=== PATIENT | female | born 1995 | race African-American/Black ===

== ENCOUNTER 2025-05-17 12:52 | Day surgery (SDC) | payer SELFPAY ==
[2025-05-17 13:05] VITALS: BMI 31.5
[2025-05-17 15:10] LABS: ABSOLUTE IMMATURE GRANULOCYTES 0.01 x10^3/uL (0.0-0.031); BASOPHILS # 0.02 x10^3/uL (0.01-0.08); EOSINOPHIL % 0.7 % (0.7-5.8); EOSINOPHILS # 0.04 x10^3/uL (0.04-0.36); MCHC 32.5 g/dl (32.2-35.5); MEAN CELL VOLUME 92.7 fl (79.4-94.8); MEAN PLT VOLUME 10.5 fl (9.4-12.3); MONOCYTE # 0.45 x10^3/uL (0.24-0.86); MONOCYTE % 7.6 % (4.7-12.5); RDW 13.2 % (12.1-16.8)
[2025-05-17 15:18] LABS: INR 1.02 (0.83-1.09); PROTHROMBIN TIME (PATIENT) 11.2 SEC (9.7-13.0)
[2025-05-17 15:21] LABS: ACTIVATED PTT 21.2 SECONDS (25.2-36.5)
[2025-05-17 15:26] LABS: URINE APPEARANCE CLEAR; URINE BILIRUBIN NEGATIVE (NEGATIVE); URINE COLOR YELLOW; URINE GLUCOSE (UA) NEGATIVE (NEGATIVE); URINE KETONE NEGATIVE (NEGATIVE); URINE LEUK ESTERASE NEGATIVE (NEGATIVE); URINE NITRITE NEGATIVE (NEGATIVE); URINE PROTEIN NEGATIVE (NEGATIVE); URINE UROBILINOGEN 1.0 mg/dL (0.2-1.0)
[2025-05-17 15:36] LABS: CO2 22.0 mmol/L (21-32); GLUCOSE,RANDOM 85.0 mg/dL (74-106)
[2025-05-17 15:39] LABS: CREATININE 0.7 mg/dL (0.55-1.3); SGOT/AST 38.0 U/L (15-37); SGPT/ALT 27.0 U/L (13-61)
[2025-05-17 15:41] LABS: TOT PROT 7.2 g/dl (6.4-8.2)
[2025-05-17 15:42] LABS: ALK PHOS 48.0 U/L (45-117)
[2025-05-17 16:40] LABS: HIV INTERPRETATION NEGATIVE (NEGATIVE)
[2025-05-17 16:41] LABS: HCV DIAGNOSTIC IN-HOUSE W/RFLX NON-REACTIVE (NONREACTIVE)
[2025-05-17] MEDS ORDERED: LIDOCAINE HCL/PF 2% SDV 5ML VIAL ONE (17:32)
[2025-05-17] MEDS ORDERED: DEXAMETHASONE SOD PHOSPHATE 4 MG/1 ML VIAL ONE (17:32)
[2025-05-17] MEDS ORDERED: ONDANSETRON 4 MG/2 ML VIAL ONE (17:32)
[2025-05-17] MEDS ORDERED: KETOROLAC TROMETHAMINE 30 MG/1 ML VIAL ONE (17:32)
[2025-05-17] MEDS ORDERED: MIDAZOLAM HCL 2 MG/2 ML SINGLE DOSE VIAL ONE (17:33)
[2025-05-17] MEDS ORDERED: BUPIVACAINE HCL/PF 0.5% (5MG/ML) 10 ML VIAL ONE (17:36)
[2025-05-17] MEDS ORDERED: ACETAMINOPHEN INJECTION 100 ML ONE (17:48)
[2025-05-17] MEDS ORDERED: LIDOCAINE HCL 1%, 10 MG/ML (20ML VIAL) ONE (17:56)
[2025-05-17] MEDS ORDERED: LIDOCAINE HCL/PF 1% SDV 5ML VIAL ONE (17:56)
[2025-05-17] MEDS ORDERED: ROCURONIUM BROMIDE 50 MG/5 ML SYRINGE ONE (17:58)
[2025-05-17] MEDS: LIDOCAINE HCL 1%, 10 MG/ML (20ML VIAL) NR ONE ×2 (18:21)
[2025-05-17] MEDS ORDERED: PROPOFOL 20 ML ONE (18:41)
[2025-05-17] MEDS ORDERED: LACTATED RINGERS SOLUTION 1,000 ML IV SCH (18:45)
[2025-05-17] MEDS ORDERED: SUGAMMADEX SODIUM 200 MG/2 ML VIAL ONE (19:09)
[2025-05-17 19:58] LABS: MCHC 32.0 g/dl (32.2-35.5); MEAN CELL VOLUME 93.9 fl (79.4-94.8); MEAN PLT VOLUME 8.5 fl (9.4-12.3); RDW 13.2 % (12.1-16.8)
[2025-05-17] MEDS: LACTATED RINGERS SOLUTION 1,000 ML IV SCH (20:49)
[2025-05-17 22:04] VITALS: BP 141/90; PULSE 76; RESP 20; TEMP 98.2
[2025-05-18] MEDS ORDERED: ACETAMINOPHEN 1000 MG/100 ML BAG IVPB SCH (03:00)
== END 2025-05-17 23:13 | disposition home or self-care (01) ==
LOC: JER 12:52 → JASUSAT 16:49 → J8W 21:14 → JASUSAT 23:13
PROVIDERS: ATTEND Obstetrics & Gynecology Obstetrics
PROC: 0UB64ZZ Excision of Left Fallopian Tube, Percutaneous Endoscopic Approach (ICD-10-PCS; 2025-05-17)
PROC: 10T24ZZ Resection of Products of Conception, Ectopic, Percutaneous Endoscopic Approach (ICD-10-PCS; principal; 2025-05-17 17:30)
DX: O00.102 Left tubal pregnancy without intrauterine pregnancy (principal)
CPT/HCPCS: 36415; 76817-TC; 80053; 81003; 84702; 85025; 85027; 85610; 85730; 86803; 86922; 87086; 87389; 93005; 93010; 94760; 99291